=== PATIENT | female | born 1995 | race Caucasian/White ===

== ENCOUNTER → 2024-12-20 13:09 | Outpatient (REF) | payer BC, SELFPAY | LOC: RAD 13:09 | PROVIDERS: ATTENDING PHYSICIAN Nurse Practitioner Family; FAMILY PHYSICIAN Family Medicine | DX: Z34.01 Encounter for supervision of normal first pregnancy, first trimester (principal) | CPT/HCPCS: 76801; 76817 ==

== ENCOUNTER → 2025-01-18 10:21 | Outpatient (REF) | payer BC, SELFPAY | LOC: PNTC 10:21 | PROVIDERS: ATTENDING PHYSICIAN Student in an Organized Health Care Education/Training Program | DX: Z36.0 Encounter for antenatal screening for chromosomal anomalies (principal); Z36.82 Encounter for antenatal screening for nuchal translucency | CPT/HCPCS: 76801; 76813 ==

== ENCOUNTER → 2025-03-12 09:28 | Outpatient (REF) | payer BC, SELFPAY | LOC: PNTC 09:28 | PROVIDERS: ATTENDING PHYSICIAN Student in an Organized Health Care Education/Training Program | DX: Z36.86 Encounter for antenatal screening for cervical length (principal); Z36.3 Encounter for antenatal screening for malformations | CPT/HCPCS: 76805; 76817 ==